=== PATIENT | male | born 1965 | race Caucasian/White ===

== ENCOUNTER 2016-12-02 14:35 | Emergency (ER) | payer OTHER ==
[2016-12-02 16:49] LABS: BASOPHIL 0.2 % (0-2); EOSINOPHIL 1.2 % (0-5); HCT 45.1 % (42.0-52.0); HGB 16.1 g/dl (13.2-18.0); LYMPHOCYTE 17.7 % (15-48); MCH 28.8 pg (25.0-31.0); MCHC 35.7 g/dL (32.0-36.0); MCV 80.7 fL (78.0-100.0); MONOCYTE 6.9 % (0-12); MPV 11.5 fL (6.0-9.5); PLT 170 K/uL (150-400); RBC 5.59 M/uL (4.70-6.00)
[2016-12-02 17:37] LABS: PRO-BNP 216 pg/mL (0-125); TROPONIN T < 0.010 ng/mL
[2016-12-02 17:38] LABS: ALBUMIN 3.9 g/dL (3.5-5.0); BILIRUBIN - TOTAL 0.3 mg/dL (0.1-1.0); CREATININE 0.8 mg/dL (0.7-1.2); GLOBULIN (CALCULATION) 2.5 g/dL (2.2-4.2); POTASSIUM 3.3 mmol/L (3.5-5.1); TOTAL PROTEIN 6.4 g/dL (6.4-8.3)
== END 2016-12-02 18:45 | disposition home or self-care (01) ==
LOC: FER 14:35
PROVIDERS: Emergency Medicine
DX: J20.9 Acute bronchitis, unspecified (principal); R73.9 Hyperglycemia, unspecified; J02.9 Acute pharyngitis, unspecified; I10 Essential (primary) hypertension; F17.210 Nicotine dependence, cigarettes, uncomplicated
CPT/HCPCS: 36415; 71020; 80053; 83880; 84484; 85025; 87804; 87899; 93005; 94640; J2930

== ENCOUNTER 2021-02-03 19:19 | Emergency (ER) | payer OTHER ==
[~2021-02-03 19:19] MED LIST: DUONEB 2.5-0.5M1 AMP INH; DUONEB 2.5-0.5M1 AMP NEB; MEDROL 4MG DOSEP4 MG PO; METFORMIN HCL500 MG PO; NORVASC5 MG PO; PREDNISONE 20MG20 MG PO; PRINIVIL20 MG PO; ZPAK PO
== END 2021-02-03 20:45 | disposition home or self-care (01) ==
LOC: FER 19:19
DX: T83.091A Other mechanical complication of indwelling urethral catheter, initial encounter (principal); E11.9 Type 2 diabetes mellitus without complications; I10 Essential (primary) hypertension; Z79.899 Other long term (current) drug therapy; Y73.2 Prosthetic and other implants, materials and accessory gastroenterology and urology devices associated with adverse incidents
CPT/HCPCS: 99283